=== PATIENT | male | born 1985 | race Caucasian/White ===

== ENCOUNTER 2023-08-17 09:43 | Outpatient (REF) | payer OTHER, SELFPAY ==
--- NOTE | ~2023-08-17 | XR_ITS ---
EXAMINATION: XR CHEST CLINICAL INFORMATION: Cough COMPARISON: None available. TECHNIQUE: 2 views of the chest were obtained. FINDINGS: Lungs are clear, mildly hyperinflated, no evidence of nodules infiltrates or pleural effusion. XR/XR chest 2V IMPRESSION: No evidence of pneumonia, clear hyperinflated lungs
== END 2023-08-17 09:44 | disposition home or self-care (01) ==
LOC: HO.XRAY 09:43
PROVIDERS: PCP Internal Medicine; Visit Provider Internal Medicine
DX: J18.9 Pneumonia, unspecified organism (principal)
CPT/HCPCS: 71046